=== PATIENT | female | born 1970 | race Caucasian/White ===

== ENCOUNTER 2016-05-25 08:30 | Emergency (ER) | payer OTHER ==
--- NOTE | 2016-05-25 10:17 | ED NURSING NOTES ---
Clinical Report - Nurses [facility] [address] [place] [address] 05/25/2016 8:32 [id number] Triage time 08:42. Acuity: LEVEL 4. Chief Complaint: RIGHT UPPER EXTREMITY PAIN and SWELLING. Location of symptoms- right thumb. 08:52 05/25/16. Alert. No acute distress. SEPSIS SCREEN: Sepsis Screen. Negative (no infection suspected/documented). SHAJI COMA SCORE: [place] Coma Scale: 15- eyes open spontaneously (4); best verbal response- oriented x 4 (5); best motor response- obeys commands (6). --08:52 Vandana Hampton R.N. 08:45 05/25/16. BP: 128/83. HR: 81. RR: 15. O2 saturation: 96%. Temp: 97.7 F. Pain level now: 5/10. Additional comments: pt states her pain was an 8 without vicodin. --08:52 Vandana Hampton R.N. 09:18 05/25/16. --09:18 Vandana Hampton R.N. Chief Complaint: RIGHT UPPER EXTREMITY PAIN, SWELLING and REDNESS. correction to prior entry - 08:52. 09:34 05/25/16. --09:34 Vandana Hampton R.N. Weight: 58.5 kg stated. Height/Length: 65 inches Per Patient. BMI: 21.5. --08:51 Vandana Hampton R.N. Medications None. --08:48 Vandana Hampton R.N. Allergies None. --08:48 Vandana Hampton R.N. History <<STRICKEN ENTRY-- Arrived by private vehicle. An injury may have occurred. Location of injuries: tip of right thumb. This occurred (two days ago). 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 she states "there was never any blood, but I don't know if I injured it working with wood or on the car"). 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 (pt states she took vicodin). PAST MEDICAL HX: Tetanus status: unknown. Immunizations: status is unknown. SOCIAL HX: Never smoker. History of occasional drug use. (tobacco). No alcohol use. FALL RISK ASSESSMENT: Fall risk assessment completed. No fall risk identified. NUTRITIONAL RISK ASSESSMENT: The nutritional risk assessment revealed no deficiencies. FUNCTIONAL ASSESSMENT: Functional assessment: no impairments noted. LEARNING NEEDS ASSESSMENT: The learning needs assessment revealed no barriers. SKIN INTEGRITY ASSESSMENT: Skin integrity risk assessment completed. No skin integrity risk identified. --08:52 Vandana Hampton R.N. --END STRIKE>> Correction --09:30 Vandana Hampton R.N. <<STRICKEN ENTRY-- SOCIAL HX: History of occasional chewing tobacco use. --09:18 Vandana Hampton R.N. --END STRIKE>> Correction --09:30 Vandana Hampton R.N. Arrived by private vehicle. Historian: patient. An injury may have occurred. This occurred (2 days ago). 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 she states, "there was never any blood, but I don't know if I injured it working with wood or on the car"). PAST MEDICAL HX: Tetanus status: unknown. Immunizations: status is unknown. SOCIAL HX: Never smoker. History of occasional chewing tobacco use. No alcohol use or drug use. FALL RISK ASSESSMENT: Fall risk assessment completed. No fall risk identified. NUTRITIONAL RISK ASSESSMENT: The nutritional risk assessment revealed no deficiencies. FUNCTIONAL ASSESSMENT: Functional assessment: no impairments noted. LEARNING NEEDS ASSESSMENT: The learning needs assessment revealed no barriers. SKIN INTEGRITY ASSESSMENT: Skin integrity risk assessment completed. No skin integrity risk identified. --09:34 Vandana Hampton R.N. ADDITIONAL SURGERIES: Back Surgery. Shoulder Surgery. --08:48 Vandana Hampton R.N. Interventions ID band on patient. To treatment room. --08:52 Vandana Hampton R.N. PHYSICAL ASSESSMENT 08:56 05/25/16. Ambulatory to room. GENERAL / NEURO / PSYCH: Oriented X 4. Alert. Appears in no acute distress. EXTREMITIES: Extremities exhibit normal ROM. Tip of right thumb: superficial 0.5 cm laceration; (pt states laceration is "from dry skin"). ( Patient has erythema, tenderness, and swelling around the R thumb nail bed and in the pad of the R thumb.). SKIN: Skin intact. Skin is warm and dry. --08:56 Vandana Hampton R.N. NURSING PROGRESS NOTES 08:56 05/25/16. Two patient identifiers checked. Call light placed in reach. Side rails up x 1. Bed placed in lowest position. Brakes of bed on. Patient ready for evaluation- chart flagged and notification provided. --08:56 Vandana Hampton R.N. 09:39 05/25/2016 Bactrim DS (Sulfamethoxazole-TMP DS) PO 2 tab given. Allergies verified and confirmed 5 rights. --09:39 Vandana Hampton R.N. 09:41 05/25/16. Patient informed about reason for wait and about plan of care. --09:41 Vandana Hampton R.N. 10:02 05/25/2016 TDAP IM 0.5 mL given. (Lot#: [id number], expiration date: 12/06/2017, Time Clock Repairer: sanofi pasteur). Given in the left deltoid. Allergies verified and confirmed 5 rights. Vaccine information statement provided to the patient. --10:07 Vandana Hampton R.N. 10:06 05/25/2016 Ancef (CeFAZolin Sodium) IM 1 gm given. Given in the right ventral gluteus. Allergies verified and confirmed 5 rights. --10:06 Vandana Hampton R.N. DISPOSITION / DISCHARGE 10:26 05/25/16. No learning barriers present. Discharge instructions provided and reviewed with the patient. Reviewed warnings. Reviewed medication(s). Treatments reviewed. Reviewed referrals. Activity restrictions reviewed. Work note given. Patient verbalized understanding. Written instructions provided in Indonesian. The patient was discharged by the physician. She was discharged home. She left the Emergency Department ambulatory and via private vehicle. FALL RISK ASSESSMENT: Fall risk assessment completed. No fall risk identified. --10:26 Vandana Hampton R.N. 10:25 05/25/16. BP: 131/86. HR: 81. RR: 16. O2 saturation: 98%. Temp: deferred. Pain level now: 08/08. --10:26 Vandana Hampton R.N. Locked/Released at 05/25/2016 10:33 by Vandana Hampton R.N.
--- NOTE | 2016-05-25 10:17 | ED ORDER SUMMARY ---
..... Patient: SOFI GUILLAUME OrderSheet [facility] VisitID: [id number] [place] [address] 46y, F Registration Date/Time: 05/25/2016 ORDER SHEET Weight: 58.5 kg (stated) Allergies: None GENERAL ORDERS: Finger Right (thumb) Urgent (09:14 05/25/2016 [facility]) (Ack 9:19 Verito) (9:46 RMarsden R.N.) MEDICATION ORDERS: Ancef IM 1 gm (NOW) (09:14 05/25/2016 [facility]) (Ack 9:19 RMarsden R.N.) (10:06 RMarsden R.N.) Bactrim DS PO (Tablet 800-160 mg) 2 tabs (NOW) (09:14 05/25/2016 [facility]) (Ack 9:19 RMarsden R.N.) (9:39 RMarsden R.N.) Tdap IM 0.5 mL (NOW, per protocol) (09:56 05/25/2016 [facility]) (Ack 9:56 RMarsden R.N.) (10:07 RMarsden R.N.) IV FLUIDS: ORDER SHEET NOTES: [Electronically signed by Vandana Hampton R.N. (10:33 05/25/2016)] [Electronically signed by Jerry Magana DO (13:28 05/25/2016)] [Electronically locked/signed by Vandana Hampton R.N. (10:33 05/25/2016)]
--- NOTE | 2016-05-25 10:17 | ED CLINICAL REPORT ---
Clinical Report - Physicians/Mid Levels [facility] [address] [place] [address] 05/25/2016 8:32 Patient: SOFI GUILLAUME Time Seen: 09:07. Arrived- By private vehicle. Historian- patient. HISTORY OF PRESENT ILLNESS Chief Complaint: Injury to the right thumb. The injury happened 2 days. Occurred at home. (pt states she was working on car brakes and with wood the day her thumb started hurting. she states "there was never any blood, but I don't know if I injured it working with wood or on the car").). Patient is experiencing moderate pain. Patient denies injury to the head or neck. No other injury. REVIEW OF SYSTEMS The patient has had swelling. No tingling, numbness, weakness, foreign body or skin laceration. All systems otherwise negative, except as recorded above. PAST HISTORY See nurses notes. The patient's dominant hand is the right. Tetanus immunization status is up-to-date. Surgeries: Back surgery. Breast augmentation. Shoulder surgery. Medications: None. Allergies: None. SOCIAL HISTORY Never smoker. History of occasional chewing tobacco use. No alcohol use or drug use. ADDITIONAL NOTES The nursing notes have been reviewed. PHYSICAL EXAM Vital Signs: 05/25/2016 08:45 BP: 128/83. HR: 81. RR: 15. O2 saturation: 96%. Temp: 97.7 F. Pain level now: 5/10. Appearance: Alert. Oriented X3. Patient in mild distress. Head: Head atraumatic. Eyes: Eyes normal inspection. No scleral icterus or pale conjunctivae. ENT: Pharynx normal. No pharyngeal erythema or tonsillar exudate. The mucous membranes are not dry. Neck: Normal inspection. Neck supple. C-spine non-tender. CVS: Normal heart rate and rhythm. Heart sounds normal. Pulses normal. Respiratory: No respiratory distress. Breath sounds normal. Abdomen: No visible injury. Skin: Skin warm and dry. (cracked skin distal tip of right thumb). Extremities: Right thumb: mild erythema and swelling and moderate tenderness of the dorsal, volar, radial and ulnar aspect and distal phalanx. Neurovascular intact distally. (skin breaks - cracks - distal phallanx). No abrasion, ecchymosis, puncture wound, foreign body or deformity. No limitation in movement. Hand and wrist exam otherwise negative. Extremities otherwise negative. Neuro, Vascular and Tendons: Vascular status intact. Sensation intact. Motor intact. Neuro: Oriented X 3. No motor deficit. No sensory deficit. LABS, X-RAYS, AND EKG Rt UE Digits X-ray: No fracture. Normal alignment. No bony lesion, air in the soft tissue or foreign body. Soft tissues normal. Joint spaces normal. Views: AP, lateral and oblique. Technique: good. The X-rays were interpreted contemporaneously by me. PROGRESS AND PROCEDURES Course of Care: Tdap Vaccine 0.5 mL IM given. Ancef 1gm IM given. Bactrim DS 2 tabs PO. Pt may have had trauma, but most c/w early cellulitis. Pt has skin cracks chronically and this is a likely source of the problem - no foreign body or fracture or air in soft tissue now. She is at risk for pulp infection. Does not seem amenable to I&D now, but after more warm soaks, this may change. Does not appear to have flexor tenosynovitis now or felon. I will begin abx and she will have close out pt (ortho) follow up. Patient/family counseled. Disposition: Discharged. Condition: stable and improved. CLINICAL IMPRESSION Cellulitis of the right thumb. Clinical picture does not suggest felon or tenosynovitis. INSTRUCTIONS Apply ice. Elevate affected areas above chest level. Do not work with hand today, until tomorrow and today. Warnings: INFECTION: Watch for signs of infection (increasing heat and redness, pus-like drainage, swelling, or increased pain). Return or see your doctor if these signs occur. GENERAL WARNINGS: Return or contact your physician immediately if your condition worsens or changes unexpectedly, if not improving as expected, or if other problems arise. Prescription Medications: Hydrocodone/APAP 5mg/325mg: take 1 to 2 orally every 6 hours as needed for pain. Dispense fifteen (15). No refills. Cephalexin 500 mg: take 1 capsule orally every 6 hours for 10 days. No refill. Bactrim regular strength, 400 mg / 80 mg: take 1 tablet orally every 12 hours for 10 days. No refill. Substitution is permissible. OTC Medications: Acetaminophen (available over the counter): take according to label instructions. Motrin (available over the counter): take according to label instructions. Follow-up: Follow up with your doctor tomorrow. Follow up with an orthopedic surgeon follow up appt @ 8:30 05/26 w/ Dr Truong - you may call [phone] tomorrow. (Electronically signed by Jerry Magana DO 05/25/2016 13:28)
--- NOTE | 2016-05-25 10:17 | ED NURSING NOTES ---
Clinical Report - Nurses [facility] [address] [place] [address] 05/25/2016 8:32 [id number] Triage time 08:42. Acuity: LEVEL 4. Chief Complaint: RIGHT UPPER EXTREMITY PAIN and SWELLING. Location of symptoms- right thumb. 08:52 05/25/16. Alert. No acute distress. SEPSIS SCREEN: Sepsis Screen. Negative (no infection suspected/documented). SHAJI COMA SCORE: [place] Coma Scale: 15- eyes open spontaneously (4); best verbal response- oriented x 4 (5); best motor response- obeys commands (6). --08:52 Vandana Hampton R.N. 08:45 05/25/16. BP: 128/83. HR: 81. RR: 15. O2 saturation: 96%. Temp: 97.7 F. Pain level now: 5/10. Additional comments: pt states her pain was an 8 without vicodin. --08:52 Vandana Hampton R.N. 09:18 05/25/16. --09:18 Vandana Hampton R.N. Chief Complaint: RIGHT UPPER EXTREMITY PAIN, SWELLING and REDNESS. correction to prior entry - 08:52. 09:34 05/25/16. --09:34 Vandana Hampton R.N. Weight: 58.5 kg stated. Height/Length: 65 inches Per Patient. BMI: 21.5. --08:51 Vandana Hampton R.N. Medications None. --08:48 Vandana Hampton R.N. Allergies None. --08:48 Vandana Hampton R.N. History <<STRICKEN ENTRY-- Arrived by private vehicle. An injury may have occurred. Location of injuries: tip of right thumb. This occurred (two days ago). 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 she states "there was never any blood, but I don't know if I injured it working with wood or on the car"). 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 (pt states she took vicodin). PAST MEDICAL HX: Tetanus status: unknown. Immunizations: status is unknown. SOCIAL HX: Never smoker. History of occasional drug use. (tobacco). No alcohol use. FALL RISK ASSESSMENT: Fall risk assessment completed. No fall risk identified. NUTRITIONAL RISK ASSESSMENT: The nutritional risk assessment revealed no deficiencies. FUNCTIONAL ASSESSMENT: Functional assessment: no impairments noted. LEARNING NEEDS ASSESSMENT: The learning needs assessment revealed no barriers. SKIN INTEGRITY ASSESSMENT: Skin integrity risk assessment completed. No skin integrity risk identified. --08:52 Vandana Hampton R.N. --END STRIKE>> Correction --09:30 Vandana Hampton R.N. <<STRICKEN ENTRY-- SOCIAL HX: History of occasional chewing tobacco use. --09:18 Vandana Hampton R.N. --END STRIKE>> Correction --09:30 Vandana Hampton R.N. Arrived by private vehicle. Historian: patient. An injury may have occurred. This occurred (2 days ago). 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 she states, "there was never any blood, but I don't know if I injured it working with wood or on the car"). PAST MEDICAL HX: Tetanus status: unknown. Immunizations: status is unknown. SOCIAL HX: Never smoker. History of occasional chewing tobacco use. No alcohol use or drug use. FALL RISK ASSESSMENT: Fall risk assessment completed. No fall risk identified. NUTRITIONAL RISK ASSESSMENT: The nutritional risk assessment revealed no deficiencies. FUNCTIONAL ASSESSMENT: Functional assessment: no impairments noted. LEARNING NEEDS ASSESSMENT: The learning needs assessment revealed no barriers. SKIN INTEGRITY ASSESSMENT: Skin integrity risk assessment completed. No skin integrity risk identified. --09:34 Vandana Hampton R.N. ADDITIONAL SURGERIES: Back Surgery. Shoulder Surgery. --08:48 Vandana Hampton R.N. Interventions ID band on patient. To treatment room. --08:52 Vandana Hampton R.N. PHYSICAL ASSESSMENT 08:56 05/25/16. Ambulatory to room. GENERAL / NEURO / PSYCH: Oriented X 4. Alert. Appears in no acute distress. EXTREMITIES: Extremities exhibit normal ROM. Tip of right thumb: superficial 0.5 cm laceration; (pt states laceration is "from dry skin"). ( Patient has erythema, tenderness, and swelling around the R thumb nail bed and in the pad of the R thumb.). SKIN: Skin intact. Skin is warm and dry. --08:56 Vandana Hampton R.N. NURSING PROGRESS NOTES 08:56 05/25/16. Two patient identifiers checked. Call light placed in reach. Side rails up x 1. Bed placed in lowest position. Brakes of bed on. Patient ready for evaluation- chart flagged and notification provided. --08:56 Vandana Hampton R.N. 09:39 05/25/2016 Bactrim DS (Sulfamethoxazole-TMP DS) PO 2 tab given. Allergies verified and confirmed 5 rights. --09:39 Vandana Hampton R.N. 09:41 05/25/16. Patient informed about reason for wait and about plan of care. --09:41 Vandana Hampton R.N. 10:02 05/25/2016 TDAP IM 0.5 mL given. (Lot#: [id number], expiration date: 12/06/2017, Inside Sales Representative: sanofi pasteur). Given in the left deltoid. Allergies verified and confirmed 5 rights. Vaccine information statement provided to the patient. --10:07 Vandana Hampton R.N. 10:06 05/25/2016 Ancef (CeFAZolin Sodium) IM 1 gm given. Given in the right ventral gluteus. Allergies verified and confirmed 5 rights. --10:06 Vandana Hampton R.N. DISPOSITION / DISCHARGE 10:26 05/25/16. No learning barriers present. Discharge instructions provided and reviewed with the patient. Reviewed warnings. Reviewed medication(s). Treatments reviewed. Reviewed referrals. Activity restrictions reviewed. Work note given. Patient verbalized understanding. Written instructions provided in Armenian. The patient was discharged by the physician. She was discharged home. She left the Emergency Department ambulatory and via private vehicle. FALL RISK ASSESSMENT: Fall risk assessment completed. No fall risk identified. --10:26 Vandana Hampton R.N. 10:25 05/25/16. BP: 131/86. HR: 81. RR: 16. O2 saturation: 98%. Temp: deferred. Pain level now: 08/08. --10:26 Vandana Hampton R.N. Locked/Released at 05/25/2016 10:33 by Vandana Hampton R.N.
--- NOTE | 2016-05-25 10:17 | ED ORDER SUMMARY ---
..... Patient: SOFI GUILLAUME OrderSheet [facility] VisitID: [id number] [place] [address] 46y, F Registration Date/Time: 05/25/2016 ORDER SHEET Weight: 58.5 kg (stated) Allergies: None GENERAL ORDERS: Finger Right (thumb) Urgent (09:14 05/25/2016 [facility]) (Ack 9:19 Verito) (9:46 RMarsden R.N.) MEDICATION ORDERS: Ancef IM 1 gm (NOW) (09:14 05/25/2016 [facility]) (Ack 9:19 RMarsden R.N.) (10:06 RMarsden R.N.) Bactrim DS PO (Tablet 800-160 mg) 2 tabs (NOW) (09:14 05/25/2016 [facility]) (Ack 9:19 RMarsden R.N.) (9:39 RMarsden R.N.) Tdap IM 0.5 mL (NOW, per protocol) (09:56 05/25/2016 [facility]) (Ack 9:56 RMarsden R.N.) (10:07 RMarsden R.N.) IV FLUIDS: ORDER SHEET NOTES: [Electronically signed by Vandana Hampton R.N. (10:33 05/25/2016)] [Electronically signed by Jerry Magana DO (13:28 05/25/2016)] [Electronically locked/signed by Vandana Hampton R.N. (10:33 05/25/2016)]
--- NOTE | 2016-05-25 10:51 | DIAGNOSTIC IMAGING REPORT ---
PROCEDURE: XR FINGER - RIGHT INDICATION: TRAUMA/INJURY TECHNIQUE: Three views of the right hand and thumb. COMPARISON: None FINDINGS: No fracture, no foreign body, no soft tissue air. IMPRESSION: 1. No fracture or foreign body.
--- NOTE | 2016-05-25 13:28 | ED DISCHARGE INSTRUCTIONS ---
Patient: SOFI GUILLAUME General Instructions [facility] VisitID: [id number] [place] [address] 46y, F Registration Date/Time: 05/25/2016 Cellulitis of the right thumb. INSTRUCTIONS Apply ice. Elevate affected areas above chest level. Do not work with hand today, until tomorrow and today. Warnings: INFECTION: Watch for signs of infection (increasing heat and redness, pus-like drainage, swelling, or increased pain). Return or see your doctor if these signs occur. GENERAL WARNINGS: Return or contact your physician immediately if your condition worsens or changes unexpectedly, if not improving as expected, or if other problems arise. Prescription Medications: Hydrocodone/APAP 5mg/325mg: take 1 to 2 orally every 6 hours as needed for pain. Dispense fifteen (15). No refills. Cephalexin 500 mg: take 1 capsule orally every 6 hours for 10 days. No refill. Bactrim regular strength, 400 mg / 80 mg: take 1 tablet orally every 12 hours for 10 days. No refill. Substitution is permissible. OTC Medications: Acetaminophen (available over the counter): take according to label instructions. Motrin (available over the counter): take according to label instructions. Follow-up: Follow up with your doctor tomorrow. Follow up with an orthopedic surgeon follow up appt @ 8:30 05/26 w/ Dr Truong - you may call [phone] tomorrow. ADDITIONAL INFORMATION Cellulitis You have an infection of the skin known as cellulitis. This usually starts with a scrape, cut, insect bite, blister or other opening in the skin which becomes infected. This is a serious condition. It must be watched closely to be sure the infection is not spreading. With antibiotic treatment, the size of the red area will gradually shrink in size until the skin returns to normal. This will take 7-10 days. The red area should never increase in size once the antibiotic medicine has been started. Occasionally, an infection will be resistant to one antibiotic and another one will have to be used. Home Care: 1) Limit the use of the affected part, since excess movement can cause the infection to spread. 2) If the infection is on your leg, walk as little as possible during the first few days of the treatment. Keep your leg elevated while sitting. This will reduce swelling. 3) Take all of the antibiotic medicine exactly as directed until it is gone. Be careful not to miss any doses, especially during the first seven days. Follow Up with your doctor or this facility as directed. Check the infected area daily for the warning signs listed below. Get Prompt Medical Attention if any of the following occur: -- Spreading area of redness -- Increasing swelling or pain -- Appearance of pus or drainage -- Fever over 100.4 F (38.0 C) oral, or over 101.4 F (38.6 C) rectal, after two days on antibiotics Hydrocodone Bitartrate, Acetaminophen Oral tablet What is this medicine? ACETAMINOPHEN; HYDROCODONE (a set a LATONIA keiko fen; yareli droe KOE done) is a pain reliever. It is used to treat mild to moderate pain. How should I use this medicine? Take this medicine by mouth. Swallow it with a full glass of water. Follow the directions on the prescription label. If the medicine upsets your stomach, take the medicine with food or milk. Do not take more than you are told to take. Talk to your cabin crew regarding the use of this medicine in children. This medicine is not approved for use in children. What side effects may I notice from receiving this medicine? Side effects that you should report to your doctor or health critical care nurse specialist as soon as possible: allergic reactions like skin rash, itching or hives, swelling of the face, lips, or tongue breathing problems confusion feeling faint or lightheaded, falls stomach pain yellowing of the eyes or skin Side effects that usually do not require medical attention (report to your doctor or health critical care nurse specialist if they continue or are bothersome): nausea, vomiting stomach upset What may interact with this medicine? alcohol antihistamines isoniazid medicines for depression, anxiety, or psychotic disturbances medicines for sleep muscle relaxants naltrexone narcotic medicines (opiates) for pain phenobarbital ritonavir tramadol What if I miss a dose? If you miss a dose, take it as soon as you can. If it is almost time for your next dose, take only that dose. Do not take double or extra doses. Where should I keep my medicine? Keep out of the reach of children. This medicine can be abused. Keep your medicine in a safe place to protect it from theft. Do not share this medicine with anyone. Selling or giving away this medicine is dangerous and against the law. Store at room temperature between 15 and 30 degrees C (59 and 86 degrees F). Protect from light. Keep container tightly closed. Throw away any unused medicine after the expiration date. Discard unused medicine and used packaging carefully. Pets and children can be harmed if they find used or lost packages. What should I tell my health care provider before I take this medicine? They need to know if you have any of these conditions: brain tumor Crohn's disease, inflammatory bowel disease, or ulcerative colitis drink more than 3 alcohol-containing drinks per day drug abuse or addiction head injury heart or circulation problems kidney disease or problems going to the bathroom liver disease lung disease, asthma, or breathing problems an unusual or allergic reaction to acetaminophen, hydrocodone, other opioid analgesics, other medicines, foods, dyes, or preservatives or trying to get breast-feeding What should I watch for while using this medicine? Tell your doctor or health critical care nurse specialist if your pain does not go away, if it gets worse, or if you have new or a different type of pain. You may develop tolerance to the medicine. Tolerance means that you will need a higher dose of the medicine for pain relief. Tolerance is normal and is expected if you take the medicine for a long time. Do not suddenly stop taking your medicine because you may develop a severe reaction. Your body becomes used to the medicine. This does NOT mean you are addicted. Addiction is a behavior related to getting and using a drug for a non-medical reason. If you have pain, you have a medical reason to take pain medicine. Your doctor will tell you how much medicine to take. If your doctor wants you to stop the medicine, the dose will be slowly lowered over time to avoid any side effects. You may get drowsy or dizzy when you first start taking the medicine or change doses. Do not drive, use machinery, or do anything that may be dangerous until you know how the medicine affects you. Stand or sit up slowly. There are different types of narcotic medicines (opiates) for pain. If you take more than one type at the same time, you may have more side effects. Give your health care provider a list of all medicines you use. Your doctor will tell you how much medicine to take. Do not take more medicine than directed. Call emergency for help if you have problems breathing. The medicine will cause constipation. Try to have a bowel movement at least every 2 to 3 days. If you do not have a bowel movement for 3 days, call your doctor or health critical care nurse specialist. Too much acetaminophen can be very dangerous. Do not take Tylenol (acetaminophen) or medicines that contain acetaminophen with this medicine. Many non-prescription medicines contain acetaminophen. Always read the labels carefully. Cephalexin Monohydrate Oral tablet What is this medicine? CEPHALEXIN (sef a JEFF in) is a cephalosporin antibiotic. It is used to treat certain kinds of bacterial infections It will not work for colds, flu, or other viral infections. How should I use this medicine? Take this medicine by mouth with a full glass of water. Follow the directions on the prescription label. This medicine can be taken with or without food. Take your medicine at regular intervals. Do not take your medicine more often than directed. Take all of your medicine as directed even if you think you are better. Do not skip doses or stop your medicine early. Talk to your cabin crew regarding the use of this medicine in children. While this drug may be prescribed for selected conditions, precautions do apply. What side effects may I notice from receiving this medicine? Side effects that you should report to your doctor or health critical care nurse specialist as soon as possible: allergic reactions like skin rash, itching or hives, swelling of the face, lips, or tongue breathing problems pain or trouble passing urine redness, blistering, peeling or loosening of the skin, including inside the mouth severe or watery diarrhea unusually weak or tired yellowing of the eyes, skin Side effects that usually do not require medical attention (report to your doctor or health critical care nurse specialist if they continue or are bothersome): gas or heartburn genital or anal irritation headache joint or muscle pain nausea, vomiting What may interact with this medicine? probenecid some other antibiotics What if I miss a dose? If you miss a dose, take it as soon as you can. If it is almost time for your next dose, take only that dose. Do not take double or extra doses. There should be at least 4 to 6 hours between doses. Where should I keep my medicine? Keep out of the reach of children. Store at room temperature between 59 and 86 degrees F (15 and 30 degrees C). Throw away any unused medicine after the expiration date. What should I tell my health care provider before I take this medicine? They need to know if you have any of these conditions: kidney disease stomach or intestine problems, especially colitis an unusual or allergic reaction to cephalexin, other cephalosporins, penicillins, other antibiotics, medicines, foods, dyes or preservatives or trying to get breast-feeding What should I watch for while using this medicine? Tell your doctor or health critical care nurse specialist if your symptoms do not begin to improve in a few days. Do not treat diarrhea with over the counter products. Contact your doctor if you have diarrhea that lasts more than 2 days or if it is severe and watery. If you have diabetes, you may get a false-positive result for sugar in your urine. Check with your doctor or health critical care nurse specialist. Sulfamethoxazole, Trimethoprim Oral tablet What is this medicine? SULFAMETHOXAZOLE; TRIMETHOPRIM or SMX-TMP (suhl fuh meth OK favian zohl; trye METH oh prim) is a combination of a sulfonamide antibiotic and a second antibiotic, trimethoprim. It is used to treat or prevent certain kinds of bacterial infections. It will not work for colds, flu, or other viral infections. How should I use this medicine? Take this medicine by mouth with a full glass of water. Follow the directions on the prescription label. Take your medicine at regular intervals. Do not take it more often than directed. Do not skip doses or stop your medicine early. Talk to your cabin crew regarding the use of this medicine in children. Special care may be needed. This medicine has been used in children as young as 2 months of age. What side effects may I notice from receiving this medicine? Side effects that you should report to your doctor or health critical care nurse specialist as soon as possible: allergic reactions like skin rash or hives, swelling of the face, lips, or tongue breathing problems fever or chills, sore throat irregular heartbeat, chest pain joint or muscle pain pain or difficulty passing urine red pinpoint spots on skin redness, blistering, peeling or loosening of the skin, including inside the mouth unusual bleeding or bruising unusually weak or tired yellowing of the eyes or skin Side effects that usually do not require medical attention (report to your doctor or health critical care nurse specialist if they continue or are bothersome): diarrhea dizziness headache loss of appetite nausea, vomiting nervousness What may interact with this medicine? Do not take this medicine with any of the following medications: aminobenzoate potassium dofetilide metronidazole This medicine may also interact with the following medications: ELEANOR inhibitors like benazepril, enalapril, lisinopril, and ramipril cyclosporine digoxin diuretics indomethacin medicines for diabetes methenamine methotrexate phenytoin potassium supplements pyrimethamine sulfinpyrazone tricyclic antidepressants warfarin What if I miss a dose? If you miss a dose, take it as soon as you can. If it is almost time for your next dose, take only that dose. Do not take double or extra doses. Where should I keep my medicine? Keep out of the reach of children. Store at room temperature between 20 to 25 degrees C (68 to 77 degrees F). Protect from light. Throw away any unused medicine after the expiration date. What should I tell my health care provider before I take this medicine? They need to know if you have any of these conditions: anemia asthma being treated with anticonvulsants if you frequently drink alcohol containing drinks kidney disease liver disease low level of folic acid or [id number] dehydrogenase poor nutrition or malabsorption porphyria severe allergies thyroid disorder an unusual or allergic reaction to sulfamethoxazole, trimethoprim, sulfa drugs, other medicines, foods, dyes, or preservatives or trying to get breast-feeding What should I watch for while using this medicine? Tell your doctor or health critical care nurse specialist if your symptoms do not improve. Drink several glasses of water a day to reduce the risk of kidney problems. Do not treat diarrhea with over the counter products. Contact your doctor if you have diarrhea that lasts more than 2 days or if it is severe and watery. This medicine can make you more sensitive to the sun. Keep out of the sun. If you cannot avoid being in the sun, wear protective clothing and use a sunscreen. Do not use sun lamps or tanning beds/booths. Acetaminophen Oral tablet What is this medicine? ACETAMINOPHEN (a set a LAOTNIA keiko fen) is a pain reliever. It is used to treat mild pain and fever. How should I use this medicine? Take this medicine by mouth with a glass of water. Follow the directions on the package or prescription label. Take your medicine at regular intervals. Do not take your medicine more often than directed. Talk to your cabin crew regarding the use of this medicine in children. While this drug may be prescribed for children as young as 6 years of age for selected conditions, precautions do apply. What side effects may I notice from receiving this medicine? Side effects that you should report to your doctor or health critical care nurse specialist as soon as possible: allergic reactions like skin rash, itching or hives, swelling of the face, lips, or tongue breathing problems fever or sore throat redness, blistering, peeling or loosening of the skin, including inside the mouth trouble passing urine or change in the amount of urine unusual bleeding or bruising unusually weak or tired yellowing of the eyes or skin Side effects that usually do not require medical attention (report to your doctor or health critical care nurse specialist if they continue or are bothersome): headache nausea, stomach upset What may interact with this medicine? alcohol imatinib isoniazid other medicines with acetaminophen What if I miss a dose? If you miss a dose, take it as soon as you can. If it is almost time for your next dose, take only that dose. Do not take double or extra doses. Where should I keep my medicine? Keep out of reach of children. Store at room temperature between 20 and 25 degrees C (68 and 77 degrees F). Protect from moisture and heat. Throw away any unused medicine after the expiration date. What should I tell my health care provider before I take this medicine? They need to know if you have any of these conditions: if you frequently drink alcohol containing drinks liver disease an unusual or allergic reaction to acetaminophen, other medicines, foods, dyes or preservatives or trying to get breast-feeding What should I watch for while using this medicine? Tell your doctor or health critical care nurse specialist if the pain lasts more than 10 days (5 days for children), if it gets worse, or if there is a new or different kind of pain. Also, check with your doctor if a fever lasts for more than 3 days. Do not take other medicines that contain acetaminophen with this medicine. Always read labels carefully. If you have questions, ask your doctor or pharmacist. If you take too much acetaminophen get medical help right away. Too much acetaminophen can be very dangerous and cause liver damage. Even if you do not have symptoms, it is important to get help right away. Ibuprofen Oral tablet What is this medicine? IBUPROFEN (eye BYOO proe fen) is a non-steroidal anti-inflammatory drug (NSAID). It is used for dental pain, fever, headaches or migraines, osteoarthritis, rheumatoid arthritis, or painful monthly periods. It can also relieve minor aches and pains caused by a cold, flu, or sore throat. How should I use this medicine? Take this medicine by mouth with a glass of water. Follow the directions on the prescription label. Take this medicine with food if your stomach gets upset. Try to not lie down for at least 10 minutes after you take the medicine. Take your medicine at regular intervals. Do not take your medicine more often than directed. A special MedGuide will be given to you by the pharmacist with each prescription and refill. Be sure to read this information carefully each time. Talk to your cabin crew regarding the use of this medicine in children. Special care may be needed. What side effects may I notice from receiving this medicine? Side effects that you should report to your doctor or health critical care nurse specialist as soon as possible: allergic reactions like skin rash, itching or hives, swelling of the face, lips, or tongue black or bloody stools, blood in the urine or in vomit breathing problems changes in vision chest pain general ill feeling or flu-like symptoms nausea or vomiting redness, blistering, peeling or loosening of the skin, including inside the mouth slurred speech or weakness on one side of the body stomach pain unexplained weight gain or swelling unusually weak or tired yellowing of eyes or skin Side effects that usually do not require medical attention (report to your doctor or health critical care nurse specialist if they continue or are bothersome): constipation or diarrhea dizziness gas or heartburn stomach upset What may interact with this medicine? Do not take this medicine with any of the following medications: cidofovir ketorolac methotrexate pemetrexed This medicine may also interact with the following medications: alcohol aspirin diuretics lithium other drugs for inflammation like prednisone warfarin What if I miss a dose? If you miss a dose, take it as soon as you can. If it is almost time for your next dose, take only that dose. Do not take double or extra doses. Where should I keep my medicine? Keep out of the reach of children. Store at room temperature between 15 and 30 degrees C (59 and 86 degrees F). Keep container tightly closed. Throw away any unused medicine after the expiration date. What should I tell my health care provider before I take this medicine? They need to know if you have any of these conditions: asthma cigarette smoker drink more than 3 alcohol containing drinks a day heart disease or circulation problems such as heart failure or leg edema (fluid retention) high blood pressure kidney disease liver disease stomach bleeding or ulcers an unusual or allergic reaction to ibuprofen, aspirin, other NSAIDS, other medicines, foods, dyes, or preservatives or trying to get breast-feeding What should I watch for while using this medicine? Tell your doctor or healthcare professional if your symptoms do not start to get better or if they get worse. This medicine does not prevent heart attack or stroke. In fact, this medicine may increase the chance of a heart attack or stroke. The chance may increase with longer use of this medicine and in people who have heart disease. If you take aspirin to prevent heart attack or stroke, talk with your doctor or health critical care nurse specialist. Do not take other medicines that contain aspirin, ibuprofen, or naproxen with this medicine. Side effects such as stomach upset, nausea, or ulcers may be more likely to occur. Many medicines available without a prescription should not be taken with this medicine. This medicine can cause ulcers and bleeding in the stomach and intestines at any time during treatment. Ulcers and bleeding can happen without warning symptoms and can cause . To reduce your risk, do not smoke cigarettes or drink alcohol while you are taking this medicine. You may get drowsy or dizzy. Do not drive, use machinery, or do anything that needs mental alertness until you know how this medicine affects you. Do not stand or sit up quickly, especially if you are an older patient. This reduces the risk of dizzy or fainting spells. This medicine can cause you to bleed more easily. Try to avoid damage to your teeth and gums when you brush or floss your teeth. You have been given the following additional information: Cellulitis Hydrocodone Bitartrate, Acetaminophen Oral tablet Cephalexin Monohydrate Oral tablet Sulfamethoxazole, Trimethoprim Oral tablet Acetaminophen Oral tablet Ibuprofen Oral tablet Do not work with hand today, until tomorrow and today. (Electronically signed by Jerry Magana DO 05/25/2016 13:28)
--- NOTE | 2016-05-25 13:29 | ED MAR SUMMARY ---
..... Medication Administration Record [facility] [address] [place] [address] Patient: SOFI GUILLAUME Visit ID: [id number] 46y, F Weight: 58.5 kg Height/Length: 65 in BMI: 21.5 ALLERGIES: None Given 09:39 05/25/2016 Vandana Hampton RKeyshawnNKeyshawn Medication Administered: BACTRIM DS [PO] (SULFAMETHOXAZOLE-TMP DS), Dose: 2 tab PO. Medication Ordered: Bactrim DS PO (Tablet 800-160 mg) 2 tabs (NOW). Given 10:02 05/25/2016 Vandana Hampton, RKeyshawnN. Medication Administered: TDAP [IM], Dose: 0.5 mL IM. Medication Ordered: Tdap IM 0.5 mL (NOW, per protocol). Given 10:06 05/25/2016 Vandana Hampton, R.N. Medication Administered: ANCEF [IM] (CEFAZOLIN SODIUM), Dose: 1 gm IM. Medication Ordered: Ancef IM 1 gm (NOW).
--- NOTE | 2016-05-25 13:29 | ED MED RECONCILIATION SUMMARY ---
Patient: SOFI GUILLAUME Medication Reconciliation Report [facility] VisitID: [id number] [address] [place] [address] 46y, F Registration Date/Time: 05/25/2016 Weight: 58.5 kg Height/Length: 65 in. BMI: 21.5 ALLERGIES: None The patient's Home Medications are listed below: NONE. The source(s) of the original Home Medication information: Not obtained. The following Medications were given to the patient in the Emergency Department: Bactrim DS [PO] PO 2 tab, administered: 05/25/2016 9:39:00 AM Ancef [IM] IM 1 gm, administered: 05/25/2016 10:06:00 AM TDAP [IM] IM 0.5 mL, administered: 05/25/2016 10:02:00 AM The following Medications were prescribed to the patient: Acetaminophen (available over the counter): take according to label instructions. -- Jerry Magana DO Motrin (available over the counter): take according to label instructions. -- Jerry Magana DO Hydrocodone/APAP 5mg/325mg: take 1 to 2 orally every 6 hours as needed for pain. Dispense fifteen (15). No refills. -- Jerry Magana DO Cephalexin 500 mg: take 1 capsule orally every 6 hours for 10 days. No refill. -- Jerry Magana DO Bactrim regular strength, 400 mg / 80 mg: take 1 tablet orally every 12 hours for 10 days. No refill. Substitution is permissible. -- Jerry Magana DO
--- NOTE | 2016-05-25 13:29 | ED MED RECONCILIATION SUMMARY ---
Patient: SOFI GUILLAUME Medication Reconciliation Report [facility] VisitID: [id number] [address] [place] [address] 46y, F Registration Date/Time: 05/25/2016 Weight: 58.5 kg Height/Length: 65 in. BMI: 21.5 ALLERGIES: None The patient's Home Medications are listed below: NONE. The source(s) of the original Home Medication information: Not obtained. The following Medications were given to the patient in the Emergency Department: Bactrim DS [PO] PO 2 tab, administered: 05/25/2016 9:39:00 AM Ancef [IM] IM 1 gm, administered: 05/25/2016 10:06:00 AM TDAP [IM] IM 0.5 mL, administered: 05/25/2016 10:02:00 AM The following Medications were prescribed to the patient: Acetaminophen (available over the counter): take according to label instructions. -- Jerry Magana DO Motrin (available over the counter): take according to label instructions. -- Jerry Magana DO Hydrocodone/APAP 5mg/325mg: take 1 to 2 orally every 6 hours as needed for pain. Dispense fifteen (15). No refills. -- Jerry Magana DO Cephalexin 500 mg: take 1 capsule orally every 6 hours for 10 days. No refill. -- Jerry Magana DO Bactrim regular strength, 400 mg / 80 mg: take 1 tablet orally every 12 hours for 10 days. No refill. Substitution is permissible. -- Jerry Magana DO
--- NOTE | 2016-05-25 13:29 | ED MAR SUMMARY ---
..... Medication Administration Record [facility] [address] [place] [address] Patient: SOFI GUILLAUME Visit ID: [id number] 46y, F Weight: 58.5 kg Height/Length: 65 in BMI: 21.5 ALLERGIES: None Given 09:39 05/25/2016 Vandana Hampton RKeyshawnNKeyshawn Medication Administered: BACTRIM DS [PO] (SULFAMETHOXAZOLE-TMP DS), Dose: 2 tab PO. Medication Ordered: Bactrim DS PO (Tablet 800-160 mg) 2 tabs (NOW). Given 10:02 05/25/2016 Vandana Hampton, RKeyshawnN. Medication Administered: TDAP [IM], Dose: 0.5 mL IM. Medication Ordered: Tdap IM 0.5 mL (NOW, per protocol). Given 10:06 05/25/2016 Vandana Hampton, R.N. Medication Administered: ANCEF [IM] (CEFAZOLIN SODIUM), Dose: 1 gm IM. Medication Ordered: Ancef IM 1 gm (NOW).
== END 2016-05-25 10:26 | disposition home or self-care (01) ==
LOC: ED SRH 08:30
DX: L03.011 Cellulitis of right finger (principal)